=== PATIENT | female | born 1995 | race Caucasian/White ===

== ENCOUNTER → 2023-05-05 22:17 | Outpatient (ROUT) | payer OTHER, SELFPAY ==
[2023-05-05 23:49] LABS: Urine N gonorrhoeae NOT DETECTED
[2023-05-06 00:03] LABS: Urine Chlamydia NOT DETECTED
== END ==
PROVIDERS: Visit Provider Obstetrics & Gynecology
DX: Z34.81 Encounter for supervision of other normal pregnancy, first trimester (principal); Z3A.08 8 weeks gestation of pregnancy
CPT/HCPCS: 87491; 87591

== ENCOUNTER → 2023-05-22 10:32 | Outpatient (CLI) | payer OTHER, SELFPAY ==
[2023-05-22 11:46] LABS: Add Manual Diff / Slide Review NO; Basophils Absolute Auto 0 /uL (0-100); Basophils Percent Auto 0.6 % (0-2); Eosinophils Absolute Auto 100 /uL (0-450); Eosinophils Percent Auto 1.4 % (2-4); Hematocrit 38.1 % (36-46); Hemoglobin 13.1 g/dL (12.0-16.0); Lymphocytes Absolute Auto 1800 /uL (1100-4500); Lymphocytes Percent Auto 26.4 % (25-40); Mean Corpuscular HGB Conc 34.5 % (30-36); Mean Corpuscular Hemoglobin 29.4 PG (26-34); Mean Corpuscular Volume 85.4 fL (80-100); Monocytes Absolute Auto 300 /uL (0-900); Monocytes Percent Auto 3.8 % (3-14); Neutrophils Absolute Auto 4600 /uL (1500-7000); Neutrophils Percent Auto 67.8 % (50-75); Platelet Count 231 X10^3/uL (150-400); Red Blood Cell Count 4.46 X10^6/uL (4.0-5.2); Red Cell Distribution Width 13.1 % (11.6-14.8); White Blood Cell Count 6.8 X10^3/uL (4.5-11.0)
[2023-05-22 19:55] LABS: Hepatitis B Surface Antigen NEGATIVE s/c (NEGATIVE); Rubella Antibody IgG 7.5 IU/mL (>15)
[2023-05-22 20:00] LABS: HIV 1 & 2 Ab/Ag 4th Gen Combo NEGATIVE (NEGATIVE); Hep C Virus Ab w/Reflex Quant NEGATIVE s/c (NEGATIVE)
[2023-05-23 10:00] LABS: RPR Screen Non Reactive (Non Reactive); Varicella IgG Antibody 1520 index (Immune >165)
== END ==
PROVIDERS: Referring Provider Obstetrics & Gynecology; Visit Provider Obstetrics & Gynecology
DX: Z34.80 Encounter for supervision of other normal pregnancy, unspecified trimester (principal)
CPT/HCPCS: 36415; 80055; 86787; 86803; 86850; 86900; 86901; 87086; 87389

== ENCOUNTER → 2023-06-02 12:30 | Outpatient (CLI) | payer OTHER, SELFPAY | PROVIDERS: Referring Provider Obstetrics & Gynecology; Visit Provider Obstetrics & Gynecology | DX: Z34.81 Encounter for supervision of other normal pregnancy, first trimester (principal) | CPT/HCPCS: 36415 ==

== ENCOUNTER → 2023-06-30 09:27 | Outpatient (CLI) | payer OTHER, SELFPAY ==
[2023-07-03 14:59] LABS: Gest Age on Col Date 16.7 weeks (.); Insulin Dep Diabetes No (.); OSBR Risk 1IN 10000 (.); Results Report (.); Test Results *Screen Negative* (.)
== END ==
PROVIDERS: Referring Provider Obstetrics & Gynecology; Visit Provider Obstetrics & Gynecology
DX: Z34.82 Encounter for supervision of other normal pregnancy, second trimester (principal); Z3A.16 16 weeks gestation of pregnancy
CPT/HCPCS: 36415; 82105

== ENCOUNTER → 2023-07-25 08:06 | Outpatient (CLI) | payer OTHER, SELFPAY ==
--- NOTE | 2023-07-25 08:07 | DI.US.S_ITS ---
PROCEDURE: US OB >= 14 WEEKS FETUS INDICATIONS: ANATOMY OUTSIDE/PRIOR DATING DATA: Last menstrual period (LMP): 03/05/2023. LMP-based estimated date of delivery (ALEIDA): 12/10/2023. First dating scan (date and location): 05/05/2023. Estimated date of delivery (ALEIDA) from first dating scan: 12/16/2023. The calculations are made using the working ALEIDA of 12/10/2023. TECHNIQUE: Real-time scanning was performed of the fetus, with image documentation and biometric measurements. COMPARISON: [facility], , OB <= 14 WEEKS FETUS, 05/05/2023, 14:58. [facility], , OB <= 14 WEEKS FETUS, 06/02/2023, 12:25. FINDINGS: General: A single living intrauterine gestation is present. Presentation: Variable. Placenta: Placental position is posterior. Question low-lying placenta. Amniotic fluid index: 10.7 cm, normal range is 5-24 cm. Single deepest vertical pocket is 2.9 cm. heart rate: 149 beats per minute. Maternal cervical canal: 6.9 cm long. Normal lower limit is 2.5 cm. biometrics: Biparietal diameter: 19 weeks 0 day Head circumference: 19 weeks 3 days Abdominal circumference: 20 weeks 0 day Femur length: 19 weeks 3 days Clinically estimated gestational age: 20 weeks 2 days Composite gestational age from present scan: 19 weeks 3 days Estimated weight and percentile: 307 g; 17% for gestational age. Anatomic survey: Limited due to patient's body habitus. Neuro: Ventricles are non-dilated at less than 10 mm. Cisterna magna is normal at 3-11 mm. Cerebellum is normal in size and morphology. Nuchal skin fold: Normal at less than 6 mm between 14-21 weeks gestational age. Face: Nose and lips, facial profile are normal. Spine: Suboptimally visualized due to lie. Heart: 4-chambered heart is present, with normal ventricular outflow tracts. Diaphragm: Diaphragm is intact. Stomach: Left-sided stomach is present. Kidneys: No hydronephrosis. Normal is less than 5 mm in 2nd trimester, less than 7 mm in 3rd trimester. Cord: 3-vessel cord. Cord insertion is 0.8 cm from the posterior placental edge. Bladder: Normal in size. Extremities: All 4 extremities identified. Question a small intramural fibroid in the anterior uterine wall measuring 1.8 x 1.3 x 1.0 cm. IMPRESSION: 1. A single living intrauterine gestation with growth within normal limits. weight is 17% for gestational age. 2. spine not well seen; otherwise anatomic survey. 3. Placental cord insertion is 0.8 cm from the posterior placental edge. 4. Question low-lying placenta. Recommend follow-up imaging. We strive to produce accurate, complete, and clear reports of imaging services. To assist us in improving patient care, this report was composed using standard report templates and voice recognition software. Therefore, it may contain abnormal punctuation, insertions and/or omissions. Occasional wrong-word or sound-alike substitutions may occur. Though we review the report and make efforts to correct it, we do recommend that the report be read carefully in proper context to recognize any text inaccuracies. Dictated by: Flaquita Hendricks M.D. on 07/25/2023 at 13:31 Approved by: Flaquita Hendricks M.D. on 07/25/2023 at 13:57
== END ==
PROVIDERS: Referring Provider Obstetrics & Gynecology; Visit Provider Obstetrics & Gynecology
DX: Z34.82 Encounter for supervision of other normal pregnancy, second trimester (principal); Z3A.19 19 weeks gestation of pregnancy
CPT/HCPCS: 76811

== ENCOUNTER → 2023-08-07 10:19 | Outpatient (CLI) | payer OTHER, SELFPAY ==
--- NOTE | 2023-08-07 10:20 | DI.US.S_ITS ---
PROCEDURE: US OB FOLLOW UP INDICATIONS: RE-EVALUATE SPINE, PLACENTAL CORD INSERT OUTSIDE/PRIOR DATING DATA: Last menstrual period (LMP): 03/05/2023. LMP-based estimated date of delivery (ALEIDA): 12/10/2023. First dating scan (date and location): 05/05/2023. Estimated date of delivery (ALEIDA) from first dating scan: 12/17/2023. The calculations are made using the clinical ALEIDA of 12/10/2023. TECHNIQUE: Real-time scanning was performed of the fetus, with image documentation. Endovaginal scanning: Not performed COMPARISON: None. FINDINGS: A single living intrauterine gestation is present. Presentation: Breech. Placenta: Placental position is posterior, without previa. Placenta cord insertion is 4.5 centimeter from the superior margin. Amniotic fluid index: 11.6 cm, normal range is 5-24 cm. Single deepest vertical pocket is 3.3 cm. heart rate: 143 beats per minute. Maternal cervical canal: 3.6 cm long. Normal lower limit is 2.5 cm. Clinically estimated gestational age: 22 weeks 1 day The spine appears normal. IMPRESSION: Single living intrauterine at 22 weeks 1 day, ALEIDA of 12/10/2023. Normal spine. Placental cord insertion is 4.5 centimeters from the superior margin, within normal limits. Dictated by: Patrick Mcwilliams M.D. on 08/07/2023 at 12:47 Approved by: Patrick Mcwilliams M.D. on 08/07/2023 at 12:49
== END ==
PROVIDERS: Referring Provider Obstetrics & Gynecology; Visit Provider Obstetrics & Gynecology
DX: Z3A.22 22 weeks gestation of pregnancy (principal); Z36.2 Encounter for other antenatal screening follow-up
CPT/HCPCS: 76816

== ENCOUNTER → 2023-09-07 12:59 | Outpatient (CLI) | payer OTHER, SELFPAY ==
[2023-09-07 14:43] LABS: Hematocrit 35.3 % (36-46); Hemoglobin 12.3 g/dL (12.0-16.0)
[2023-09-07 15:09] LABS: GTT (PREG) 1 Hour PP 50gm Dose 140 mg/dL (76-139)
== END ==
PROVIDERS: Referring Provider Physician Assistant Medical; Visit Provider Physician Assistant Medical
DX: Z34.83 Encounter for supervision of other normal pregnancy, third trimester (principal); Z3A.26 26 weeks gestation of pregnancy
CPT/HCPCS: 36415; 82950; 85014; 85018; 86850